=== PATIENT | female | born 1985 | race African-American/Black ===

== ENCOUNTER 2018-11-13 17:07 | Emergency (ER) | payer OTHER ==
[2018-11-13 17:16] VITALS: BP 118/58; TEMP 99.4
[2018-11-13 17:47] VITALS: PULSE 90
== END 2018-11-13 17:48 | disposition home or self-care (01) ==
LOC: COL.ER 17:07
DX: R11.2 Nausea with vomiting, unspecified (principal); R19.7 Diarrhea, unspecified

== ENCOUNTER 2019-04-11 21:10 | Inpatient (IN) | payer OTHER ==
[2019-04-11] VITALS (7 sets, daily range): BP systolic 124–140; BP diastolic 66–83; PULSE 75–96; TEMP 98.9
[~2019-04-11] VITALS: Ht 162.6 cm; Wt 182.0 kg
--- NOTE | 2019-04-11 21:20 | NUR ---
PT TO UNIT AMBULATORY WITH FRIEND WITH CONCERNS OF SROM AT APPROXIMATELY 2100. PT TO ROOM, CHANGED INTO GOWN. VS OBTAINED, EFMX2 APPLIED, SVE PERFORMED. SVE OF /-3, SROM, THICK MEC FLUID NOTED.
--- NOTE | 2019-04-11 22:00 | NUR ---
CONTINUE TO HAVE RECURRENT LATE DECELERATIONS. POSITION CHANGED TO LEFT LATERAL FOLLOWING IV START AND FLUID BOLUS.
[2019-04-11 22:12] LABS: BASO % 0.3 % (0.0-2.0); EOS # 0.1 (0.0-0.7); GRAN # 8.1 (1.4-6.5); GRAN % 70.7 % (42.2-75.2); HEMOGLOBIN 11.9 g/dl (12.5-16.0); LYMPH # 2.3 (1.2-3.4); MEAN CELL VOLUME 100 fl (80.0-100.0); MEAN CORPUSCULAR HEMOGLOBIN 33 pg (27.0-31.0); MEAN CORPUSCULAR HGB CONC 33 g/dl (33.0-37.0); MEAN PLATELET VOLUME 11.9 fl (7.4-10.4); MONO # 0.9 (0.1-0.6); MONO % 7.5 % (1.7-9.3); PLATELET COUNT 144 K/mm3 (130-400); RED BLOOD COUNT 3.59 M/mm3 (4.10-5.30); REDCELL DISTRIBUTION WIDTH-CV 11.5 % (11.5-14.5)
--- NOTE | 2019-04-11 22:15 | NUR ---
BOTH EARLY AND LATE DECELERATIONS NOTED.
--- NOTE | 2019-04-11 23:15 | NUR ---
2301- DR. AGUILAR IN ROOM TO DISCUSS C/S NEED. PLAN OF CARE DISCUSSED WITH PT AND FRIEND. QUESTIONS ENCOURAGED AND ANSWERED. 2303- DR. AGUILAR CALLS FOR C/S. PT'S MONS CLIPPED AND SURGICAL SCRUB OF ABDOMEN COMPLETED. 2308- PAT EUGENE IN ROOM TO DISCUSS SPINAL WITH PT. QUESTIONS ENCOURAGED AND ANSWERED. 2315- PT SPOUSE ARRIVES TO ROOM. QUESTIONS ANSWERED, PT OFF THE MONITOR AT THIS TIME FOR TRANSFER TO THE OR.
[2019-04-12] VITALS (18 sets, daily range): BP systolic 100–131; BP diastolic 47–83; PULSE 68–92; TEMP 67.8–98.2
[2019-04-12] MEDS ORDERED: SLOW FE142 MG PO (05:19)
--- NOTE | 2019-04-12 10:28 | NUR ---
Initial visit; Mom thanked for offering congratulations and blessings for the of her son. thanked mom for choosing [facility].
[2019-04-13 06:30] VITALS: BP 101/76; PULSE 94; TEMP 98.4
[2019-04-13 16:35] VITALS: BP 119/66; PULSE 105; TEMP 98.9
[2019-04-13 19:45] VITALS: BP 129/72; PULSE 97; TEMP 98
[2019-04-14 08:41] VITALS: BP 120/71; PULSE 88; TEMP 98.6
[2019-04-14] MEDS ORDERED: PERCOCET 325 MG1 TA2 PO (08:57)
[2019-04-14] MEDS ORDERED: MOTRIN 800800 MG/TAB PO (08:57)
== END 2019-04-14 12:50 | disposition home or self-care (01) | DRG 788 ==
LOC: LDRO 21:10 → OB 21:45 → LDR 21:45 → OB 04-12 01:10
PROVIDERS: Obstetrics & Gynecology; ADMIT Student in an Organized Health Care Education/Training Program
PROC: 10D00Z1 Extraction of Products of Conception, Low, Open Approach (ICD-10-PCS; principal; 2019-04-12)
DX: O42.92 Full-term premature rupture of membranes, unspecified as to length of time between rupture and onset of labor (principal); O99.02 Anemia complicating childbirth; D64.9 Anemia, unspecified; O69.1XX0 Labor and delivery complicated by cord around neck, with compression, not applicable or unspecified; O77.0 Labor and delivery complicated by meconium in amniotic fluid; Z3A.38 38 weeks gestation of pregnancy; Z37.0 Single live birth
CPT/HCPCS: J0690; J1885; J2175; J2370; J2405; J2590; J3010; J7120